=== PATIENT | female | born 1960 | race Caucasian/White ===

== ENCOUNTER → 2020-10-05 10:22 | Outpatient (CLI) | payer MEDICARE, SELFPAY ==
[2020-10-05 15:44] LABS: Basophils % 0.5 % (0.1-2.0); Eosinophils # 0.2 K/mm3 (0.0-0.4); Eosinophils % 2.9 % (0.1-12.0); Hematocrit 36.3 % (37.0-47.0); Lymphocytes # 1.3 K/mm3 (0.7-4.5); Lymphocytes % 23.1 % (10-50); Mean Corpuscular Hemoglobin 29.2 pg (27.0-31.2); Mean Corpuscular Volume 88.4 fl (81-99); Mean Platelet Volume 8.3 fl (7.4-10.4); Monocytes # 0.3 K/mm3 (0.1-1.0); Monocytes % 5.4 % (1.7-9.3); Neutrophils # 3.8 K/mm3 (1.8-7.8); Neutrophils % 68.1 % (37.0-80.0); Platelet Count 225 K/mm3 (142-424); Red Blood Count 4.11 M/mm3 (4.20-5.40); Red Cell Distribution Width 13.3 % (11.5-17.5); White Blood Count 5.6 K/mm3 (4.8-10.8)
[2020-10-05 15:58] LABS: Chloride 102 mmol/L (98-107)
[2020-10-05 15:59] LABS: Potassium 3.2 mmoL/L (3.5-5.1); Sodium 136 mmol/L (136-145)
[2020-10-05 16:02] LABS: Alanine Aminotransferase 17 U/L (12-78); Albumin Level 3.7 g/dl (3.5-5.0); Albumin/Globulin Ratio 1.5 (1.1-1.8); Alkaline Phosphatase 55 U/L (38-126); Anion Gap 8.2 mEq/L (5-15); Aspartate Amino Transferase 42 U/L (14-36); Bilirubin,Total 0.9 mg/dl (0.2-1.3); Blood Urea Nitrogen 19 mg/dl (7-17); Calcium 8.8 mg/dl (8.4-10.2); Carbon Dioxide 29 mmol/L (22.0-30.0); Estimated Glomerular Filt Rate 64 ml/min (>60); GFR (African American) 77 ML/MIN (>60); Globulin 2.5 g/dL (1.3-3.2); Glucose 71 mg/dl (74-100); Total Protein,Serum 6.2 g/dl (6.3-8.2)
== END ==
PROVIDERS: Visit Provider Internal Medicine Adolescent Medicine
DX: I10 Essential (primary) hypertension (principal)
CPT/HCPCS: 36415; 80053; 85025

== ENCOUNTER → 2020-10-20 07:39 | Outpatient (CLI) | payer MEDICARE, SELFPAY ==
[2020-10-20 14:24] LABS: Chloride 102 mmol/L (98-107); Sodium 138 mmol/L (136-145)
[2020-10-20 14:26] LABS: Blood Urea Nitrogen 23 mg/dl (7-17); Estimated Glomerular Filt Rate 50 ml/min (>60); GFR (African American) 61 ML/MIN (>60)
[2020-10-20 14:27] LABS: Alanine Aminotransferase 20 U/L (12-78); Albumin Level 3.8 g/dl (3.5-5.0); Albumin/Globulin Ratio 1.4 (1.1-1.8); Alkaline Phosphatase 59 U/L (38-126); Aspartate Amino Transferase 40 U/L (14-36); Bilirubin,Total 1.1 mg/dl (0.2-1.3); Calcium 9.1 mg/dl (8.4-10.2); Carbon Dioxide 27 mmol/L (22.0-30.0); Globulin 2.7 g/dL (1.3-3.2); Glucose 87 mg/dl (74-100); Total Protein,Serum 6.5 g/dl (6.3-8.2)
[2020-10-20 14:36] LABS: Basophils % 0.5 % (0.1-2.0); Eosinophils # 0.1 K/mm3 (0.0-0.4); Eosinophils % 1.2 % (0.1-12.0); Hematocrit 36.6 % (37.0-47.0); Hemoglobin 12.3 g/dL (12.2-16.2); Lymphocytes # 1.5 K/mm3 (0.7-4.5); Lymphocytes % 20.8 % (10-50); Mean Corpuscular HGB Conc 33.6 g/dL (31.8-35.4); Mean Corpuscular Hemoglobin 29.1 pg (27.0-31.2); Mean Corpuscular Volume 86.8 fl (81-99); Mean Platelet Volume 8.7 fl (7.4-10.4); Monocytes # 0.3 K/mm3 (0.1-1.0); Monocytes % 4.5 % (1.7-9.3); Neutrophils # 5.3 K/mm3 (1.8-7.8); Platelet Count 250 K/mm3 (142-424); Red Blood Count 4.22 M/mm3 (4.20-5.40); Red Cell Distribution Width 13.4 % (11.5-17.5); White Blood Count 7.2 K/mm3 (4.8-10.8)
== END ==
PROVIDERS: Visit Provider Internal Medicine Adolescent Medicine
DX: I10 Essential (primary) hypertension (principal)
CPT/HCPCS: 36415; 80053; 85025

== ENCOUNTER → 2020-10-21 13:55 | Outpatient (CLI) | payer MEDICARE, SELFPAY ==
[2020-10-21 14:01] LABS: Microscopic, Urine URINE MICROSCOPIC (MICROSCOPIC)
[2020-10-21 14:13] LABS: Appearance,Urine SL CLOUDY (Clear); Bilirubin,Urine Negative (Negative); Blood, Urine TRACE-I (Negative); Color,Urine DK YELLOW (Yellow); Glucose,Urine (UA) Negative (Negative); Ketones,Urine Negative (Negative); Leukocyte Esterase,Urine Negative (Negative); Nitrate,Urine Negative (Negative); Protein,Urine TRACE (Negative); Specific Gravity, Urine >= 1.030 (1.005-1.030)
== END ==
PROVIDERS: Visit Provider Internal Medicine Adolescent Medicine
DX: R82.90 Unspecified abnormal findings in urine (principal)
CPT/HCPCS: 81001

== ENCOUNTER → 2020-11-03 08:05 | Outpatient (CLI) | payer MEDICARE, SELFPAY ==
[2020-11-03 08:12] LABS: Microscopic, Urine URINE MICROSCOPIC (MICROSCOPIC)
[2020-11-03 14:11] LABS: Appearance,Urine CLEAR (Clear); Bilirubin,Urine Negative (Negative); Blood, Urine TRACE-I (Negative); Color,Urine YELLOW (Yellow); Glucose,Urine (UA) Negative (Negative); Ketones,Urine Negative (Negative); Leukocyte Esterase,Urine Negative (Negative); Nitrate,Urine Negative (Negative); Protein,Urine Negative (Negative); Urobilinogen,Urine 0.2 EU/dl (0.2)
[2020-11-03 14:16] LABS: Chloride 105 mmol/L (98-107); Sodium 139 mmol/L (136-145)
[2020-11-03 14:18] LABS: Alanine Aminotransferase 25 U/L (12-78); Alkaline Phosphatase 75 U/L (38-126); Aspartate Amino Transferase 46 U/L (14-36); Bilirubin,Total 0.8 mg/dl (0.2-1.3); Blood Urea Nitrogen 24 mg/dl (7-17); Carbon Dioxide 28 mmol/L (22.0-30.0); Estimated Glomerular Filt Rate 56 ml/min (>60); GFR (African American) 68 ML/MIN (>60)
[2020-11-03 14:19] LABS: Albumin Level 3.4 g/dl (3.5-5.0); Albumin/Globulin Ratio 1.3 (1.1-1.8); Globulin 2.6 g/dL (1.3-3.2); Glucose 82 mg/dl (74-100)
[2020-11-03 14:31] LABS: RBC,Urine Occasional #/hpf (0-3); Squamous Epithelial Cell,Urine Occasional #/hpf (0-5)
[2020-11-03 14:32] LABS: Basophils % 0.8 % (0.1-2.0); Eosinophils # 0.3 K/mm3 (0.0-0.4); Eosinophils % 4.5 % (0.1-12.0); Hematocrit 38.5 % (37.0-47.0); Hemoglobin 13.1 g/dL (12.2-16.2); Lymphocytes # 1.6 K/mm3 (0.7-4.5); Lymphocytes % 27.8 % (10-50); Mean Corpuscular HGB Conc 33.9 g/dL (31.8-35.4); Mean Corpuscular Hemoglobin 29.5 pg (27.0-31.2); Mean Platelet Volume 8.6 fl (7.4-10.4); Monocytes # 0.3 K/mm3 (0.1-1.0); Monocytes % 4.8 % (1.7-9.3); Neutrophils # 3.6 K/mm3 (1.8-7.8); Neutrophils % 62.1 % (37.0-80.0); Platelet Count 297 K/mm3 (142-424); Red Blood Count 4.43 M/mm3 (4.20-5.40); Red Cell Distribution Width 13.4 % (11.5-17.5); White Blood Count 5.8 K/mm3 (4.8-10.8)
== END ==
PROVIDERS: Visit Provider Nurse Practitioner Family
DX: N39.0 Urinary tract infection, site not specified (principal)
CPT/HCPCS: 36415; 80053; 81001; 85025; 87086

== ENCOUNTER → 2020-11-06 06:58 | Outpatient (CLI) | payer MEDICARE, SELFPAY ==
--- NOTE | 2020-11-06 07:07 | CT_ITS ---
PROCEDURE: CT HEAD/BRAIN WO CON CLINICAL INDICATION: DEMENTIA COMPARISON: No exams were available for comparison TECHNIQUE: Axial images obtained. All CT scans at the facility use one or more dose reduction, viz: automated exposure control, ma/kV adjustment per patient size (including targeted exams where dose is matched to indication, i.e. head), or iterative reconstruction technique. FINDINGS: No midline shift, mass effect, intracranial hemorrhage, hydrocephalus, or extra-axial fluid collection is evident. There is moderate generalized atrophy. The calvarium has an unremarkable appearance. No mastoid effusion. No sinus air-fluid level. IMPRESSION: Atrophy, no acute intracranial findings. Dictated by: Grant Reid MD 11/06/2020 19:24 Grant Reid MD in [facility] 11/06/2020 19:24
== END ==
PROVIDERS: PCP Internal Medicine Adolescent Medicine; Visit Provider Internal Medicine Adolescent Medicine
DX: F03.91 Unspecified dementia, unspecified severity, with behavioral disturbance (principal)
CPT/HCPCS: 70450

== ENCOUNTER 2020-11-09 16:04 | Observation (INO) | payer MEDICARE, SELFPAY ==
[2020-11-09] VITALS (9 sets, daily range): BP systolic 141–178; BP diastolic 83–101; PULSE 89–124; RESP 17–30; TEMP 37.5–39.1; O2SAT 94–97; BMI 25.7; BMI 18.3
--- NOTE | 2020-11-09 16:06 | ECG_ITS ---
APPROVED REPORT Exam: Resting ECG HR:126 bpm ECG Measurements Heart Rate 126 AXES NM 114 P 104 QRSd 70 QRS 108 QT 306 T 79 QTc 443 Conclusion Sinus tachycardia Rightward axis Septal infarct, age undetermined Abnormal ECG Electronically signed by : Lalo Hanson, 11/09/2020 18:12:40
--- NOTE | 2020-11-09 16:25 | XR_ITS ---
PROCEDURE: XR CHEST PORTABLE CLINICAL HISTORY: cough COMPARISON: No exams were available for comparison FINDINGS: There is collapse/consolidation of the left lung with shift of mediastinum and trachea to the left. Small to moderate left effusion is noted. Right lung is clear. Degenerative changes of the visualized thoracic spine are noted IMPRESSION: Collapse/consolidation of the left lung with small to moderate left effusion. Close follow-up is recommended. Dictated by: Nury Shepard 11/09/2020 16:50 Nury Shepard in [facility] 11/09/2020 16:50
[2020-11-09 16:36] LABS: Adenovirus,PCR Not Detected (NotDetected); Bordetella Pertussis Not Detected (NotDetected); Chlamydophila Pneumoniae, PCR Not Detected (NotDetected); Coronavirus 19, PCR Not Detected (NotDetected); Coronavirus 229E Not Detected (NotDetected); Coronavirus NL63 Not Detected (NotDetected); Coronavirus OC43 Not Detected (NotDetected); Coronovirus HKU1,PCR Not Detected (NotDetected); Human Metapneumovirus Not Detected (NotDetected); Influenza A, PCR Not Detected (NotDetected); Influenza AH1, 2009 Not Detected (NotDetected); Influenza AH1, PCR Not Detected (NotDetected); Influenza AH3,PCR Not Detected (NotDetected); Influenza B, PCR Not Detected (NotDetected); Mycoplasma Pneumoniae, PCR Not Detected (NotDetected); Parainfluenza 1, PCR Not Detected (NotDetected); Parainfluenza 2, PCR Not Detected (NotDetected); Parainfluenza 3, PCR Not Detected (NotDetected); Parainfluenza 4, PCR Not Detected (NotDetected); Respiratory Syncytial Virus Not Detected (NotDetected); Rhinovirus/Enterovirus Not Detected (NotDetected)
[2020-11-09 16:40] LABS: Microscopic, Urine URINE MICROSCOPIC (MICROSCOPIC)
[2020-11-09 16:42] LABS: Appearance,Urine CLEAR (Clear); Blood, Urine 2+ (Negative); Color,Urine YELLOW (Yellow); Glucose,Urine (UA) Negative (Negative); Ketones,Urine 1+ (Negative); Leukocyte Esterase,Urine TRACE (Negative); Nitrate,Urine Negative (Negative); PH,Urine 6.5 (5.0-8.5); Protein,Urine 2+ (Negative); Specific Gravity, Urine 1.025 (1.005-1.030); Urobilinogen,Urine 0.2 EU/dl (0.2)
[2020-11-09 16:45] LABS: Basophils % 0.4 % (0.1-2.0); Bilirubin,Urine Negative (Negative); Chloride 112 mmol/L (98-107); Eosinophils # 0.1 K/mm3 (0.0-0.4); Eosinophils % 0.4 % (0.1-12.0); Hematocrit 46.1 % (37.0-47.0); Hemoglobin 15.2 g/dL (12.2-16.2); Lymphocytes % 8.2 % (10-50); Mean Corpuscular HGB Conc 33.1 g/dL (31.8-35.4); Mean Corpuscular Hemoglobin 29.2 pg (27.0-31.2); Mean Corpuscular Volume 88.4 fl (81-99); Mean Platelet Volume 8.3 fl (7.4-10.4); Monocytes # 0.5 K/mm3 (0.1-1.0); Monocytes % 4.2 % (1.7-9.3); Neutrophils % 86.8 % (37.0-80.0); Platelet Count 512 K/mm3 (142-424); Red Blood Count 5.22 M/mm3 (4.20-5.40); Red Cell Distribution Width 13.6 % (11.5-17.5); Sodium 147 mmol/L (136-145); White Blood Count 12.7 K/mm3 (4.8-10.8)
[2020-11-09 16:48] LABS: Alanine Aminotransferase 27 U/L (12-78); Albumin Level 4.4 g/dl (3.5-5.0); Albumin/Globulin Ratio 1.2 (1.1-1.8); Alkaline Phosphatase 89 U/L (38-126); Anion Gap 13.5 mEq/L (5-15); Aspartate Amino Transferase 39 U/L (14-36); Bilirubin,Total 0.8 mg/dl (0.2-1.3); Blood Urea Nitrogen 51 mg/dl (7-17); Calcium 10.4 mg/dl (8.4-10.2); Carbon Dioxide 26 mmol/L (22.0-30.0); Creatinine Clearance Estimated 42 mL/min (50-200); Estimated Glomerular Filt Rate 35 ml/min (>60); GFR (African American) 43 ML/MIN (>60); Globulin 3.7 g/dL (1.3-3.2); Glucose 153 mg/dl (74-100); Lipase 102 U/L (23-300); Potassium 4.5 mmoL/L (3.5-5.1); Total Protein,Serum 8.1 g/dl (6.3-8.2)
[2020-11-09 16:49] LABS: Lactic Acid 1.6 mmol/L (0.7-2.1)
[2020-11-09 16:50] LABS: Bacteria,Urine 4+ /lpf
[2020-11-09 16:52] LABS: MANUAL DIFFERENTIAL MANUAL DIFFERENTIAL (MANUAL DIFF)
--- NOTE | 2020-11-09 16:59 | HMH.EDFEV ---
ED Disposition Clinical Impression: Sepsis Qualifiers: Sepsis type: sepsis due to unspecified organism Sepsis acute organ dysfunction status: with acute organ dysfunction Severe sepsis acute organ dysfunction type: unspecified Severe sepsis shock status: without septic shock Qualified Code(s): A41.9 - Sepsis, unspecified organism; R65.20 - Severe sepsis without septic shock Left lower lobe pneumonia Qualifiers: Pneumonia type: due to unspecified organism Qualified Code(s): J18.9 - Pneumonia, unspecified organism UTI (urinary tract infection) Qualifiers: Urinary tract infection type: acute cystitis Hematuria presence: with hematuria Qualified Code(s): N30.01 - Acute cystitis with hematuria Disposition: Admitted As Inpatient Condition on Discharge: Serious - Critical Care Critical Care Time: No Attestation: On 11/09/20, the high probability of a clinically significant, sudden or life threatening deterioration of the following system(s) required my full and direct attention, intervention and personal management. The time I documented below is in addition to time spent performing reported procedures but includes the following listed in this critical care notation. Medical Decision Making - Medical Records Medical records reviewed: Yes: I reviewed the patient's medical records. - [place] Inquiry Pt receiving controlled substance: No Vital Signs: 11/09/20 16:00 11/09/20 16:30 11/09/20 17:00 Temperature 102.3 F H Temperature Source Rectal Pulse Rate 124 H 119 H Pulse Rate [Left Radial] 121 H Respiratory Rate 24 24 26 H Blood Pressure 170/94 H 154/101 H Blood Pressure [Right Arm] 170/94 H Blood Pressure Mean 120 124 Blood Pressure Mean [Right Arm] 119 Blood Pressure Source [Right Arm] Automatic Cuff Blood Pressure Position [Right Arm] Sitting 02 Sat by Pulse Oximetry 95 94 L Oxygen Delivery Method Room Air 11/09/20 17:30 Temperature 100.7 F H Temperature Source Pulse Rate 109 H Pulse Rate [Left Radial] Respiratory Rate 17 Blood Pressure 176/94 H Blood Pressure [Right Arm] Blood Pressure Mean 119 Blood Pressure Mean [Right Arm] Blood Pressure Source [Right Arm] Blood Pressure Position [Right Arm] 02 Sat by Pulse Oximetry 96 Oxygen Delivery Method - Lab Data Lab Results 11/09/20 16:23: Urine Color Yellow, Urine Appearance Clear, Urine pH 6.5, Ur Specific [place] 1.025, Urine Protein 2+, Urine Glucose (UA) Negative, Urine Ketones 1+, Urine Blood 2+, Urine Nitrate Negative, Urine Bilirubin Negative, Urine Urobilinogen 0.2, Ur Leukocyte Esterase Trace, Urine RBC 3-5, Urine WBC 5-10, Ur Squamous Epith Cells 3-5, Urine Bacteria 4+ 11/09/20 16:23: WBC 12.7 H, RBC 5.22, Hgb 15.2, Hct 46.1, MCV 88.4, MCH 29.2, MCHC 33.1, RDW 13.6, Plt Count 512 H, MPV 8.3, Neut % (Auto) 86.8 H, Lymph % (Auto) 8.2 L, [place] % (Auto) 4.2, Eos % (Auto) 0.4, Baso % (Auto) 0.4, Neut # (Auto) 11.0 H, Lymph # (Auto) 1.0, [place] # (Auto) 0.5, Eos # (Auto) 0.1, Baso # (Auto) 0.0, Total Counted 100, Neutrophils % (Manual) 81 H, Lymphocytes % (Manual) 11, Monocytes % (Manual) 8, Platelet Estimate Slight increase, RBC Morphology Normal 11/09/20 16:23: Sodium 147 H, Potassium 4.5, Chloride 112 H, Carbon Dioxide 26, Anion Gap 13.5, BUN 51 H, Creatinine 1.50 H, Estimated Creat Clear 42, Estimated GFR 35 L, Est GFR ( Amer) 43 L, Glucose 153 H, Calcium 10.4 H, Total Bilirubin 0.8, AST 39 H, ALT 27, Alkaline Phosphatase 89, Total Protein 8.1 D, Albumin 4.4, Globulin 3.7 H, Albumin/Globulin Ratio 1.2, Lipase 102 11/09/20 16:23: Lactate 1.6 11/09/20 16:25: Chlamy pneumoniae PCR Not detected, Adenovirus (PCR) Not detected, B. pertussis DNA (PCR) Not detected, Coronavirus OC43 (PCR) Not detected, Coronavirus HKU1 (PCR) Not detected, Coronavirus 229E (PCR) Not detected, SARS-CoV-2 (PCR) Not detected, Coronavirus NL63 (PCR) Not detected, Human Metapneumovir PCR Not detected, Influenza A (H1) PCR Not detected, Influ A (H1N1/09) PCR Not de
[2020-11-09 17:02] LABS: Lymphocytes % 11 % (10-50); Monocytes % 8 % (2-9); Neutrophils % 81 % (42-76); Platelet Estimate Slight Increase; RBC Morphology Normal; Total Cells Counted 100
--- NOTE | 2020-11-09 18:30 | PC.NURSE ---
Dr. Nelson joaquin.
--- NOTE | 2020-11-09 19:32 | PC.NURSE ---
Talked to Gurjit in pharmacy who states to do a one time dose of 1500mg and then 1000mg q12hrs after
--- NOTE | 2020-11-09 20:02 | PC.NURSE ---
patient up to floor via stretcher.
[2020-11-10] VITALS (9 sets, daily range): BP systolic 127–174; BP diastolic 74–96; PULSE 60–92; RESP 12–17; TEMP 36.6–38.3; O2SAT 96–99; BMI 18.3
--- NOTE | 2020-11-10 05:34 | PC.NURSE ---
Patient admitted to floor with UTI and PNA. Patient Lactic 1.6, WBC's 12.7, Patient has been administered 1 bolus on this floor, 1 dose Vanc and 1 dose Zosyn. Patient is oriented to 0, she has not spoken and is lethargic, VSS. Will continue to monitor for any acute changes.
--- NOTE | 2020-11-10 06:25 | PC.WOUNDNOTE ---
Unstageable Sacral/coccygeal Pressure Ulcer measurement 3 cm long, 1 cm wide
[2020-11-10 06:42] LABS: Monocytes # 0.7 K/mm3 (0.1-1.0)
--- NOTE | 2020-11-10 06:46 | HMH.HP ---
*Admission Date: 11/09/20 *Chief complaint: sepsis, AMS *History of present illness: 59-year-old female with a history of dementia, hypertension and lung cancer status post pneumonectomy in remission, recently admitted to our service at at [facility]. She was brought to the ER Due to worsening altered mental status, inability to tolerate p.o. medications, and lack of response to sternal rub. On work-up in the ER she was found to have criteria for sepsis with tachycardia, fever, endorgan damage (KELI) and urinary tract infection. Admitted for IV antibiotics, fluid resuscitation, and further management. Review of her outpatient records show that she has an extensive history of progressive dementia with psychiatric symptoms. Recent admissions in the past several months to [facility], and most recently sent [facility]. Significant adjustments to her medications were made at that time. She has been less responsive ever since returning. Of note, had a recent episode of E. coli UTI with hallucinations requiring admission to earlier this year. [facility] History I have reviewed the patient's past medical history: Yes (from chart/outpt record) Medical History: Reports:: Cancer, Chronic Obstructive Pulmonary Disease (COPD), Dementia, Hypertension Denies:: Atrial Fibrillation, Congestive Heart Failure, Diabetes Mellitus Type 2 *Have you ever received a pneumonia vaccine?: No (Unknown) *Have you received a flu vaccine this season?: No (Unknown) Other Surgeries: Yes: Cancer Surgery - *Social History Smoking Status: Former smoker Tobacco Type: cigarettes Alcohol Intake: never *Occupational Status:: disabled *Travel in the last 8 weeks: None Family Hx:: Unable to obtain Review of Systems - Review of Systems Review of systems:: unable to obtain - *Neurologic Denies headache(s) Meds Home Medications Medication Instructions Recorded Confirmed Type Acetaminophen [Tylenol Extra 1,000 mg PO BID 11/09/20 11/09/20 History Strength] Dextromethorphan HBr/Quinidine 1 each PO BID 11/09/20 11/09/20 History [Nuedexta 20-10 mg Capsule] Mirtazapine [Remeron 15mg tablet] 15 mg PO DAILY 11/09/20 11/10/20 History OLANZapine [Zyprexa] 5 mg PO BID 11/09/20 11/10/20 History PARoxetine HCL [Paxil] 30 mg PO DAILY 11/09/20 11/10/20 History diazePAM [diazePAM 5mg Tablet] 5 mg PO TID 11/09/20 11/10/20 History Allergies Allergy/AdvReac Type Severity Reaction Status Date / Time No Known Allergies Allergy Verified 11/09/20 17:01 Exam Vital signs and Labs for Last 24 Hours: Temp Pulse Resp BP Pulse Ox 99.2 F 70 17 133/74 97 11/10/20 03:59 11/10/20 03:59 11/10/20 03:59 11/10/20 03:59 11/10/20 03:59 Laboratory Results - last 24 hr 11/09/20 16:23: Urine Color Yellow, Urine Appearance Clear, Urine pH 6.5, Ur Specific [place] 1.025, Urine Protein 2+, Urine Glucose (UA) Negative, Urine Ketones 1+, Urine Blood 2+, Urine Nitrate Negative, Urine Bilirubin Negative, Urine Urobilinogen 0.2, Ur Leukocyte Esterase Trace, Urine RBC 3-5, Urine WBC 5-10, Ur Squamous Epith Cells 3-5, Urine Bacteria 4+ 11/09/20 16:23: WBC 12.7 H, RBC 5.22, Hgb 15.2, Hct 46.1, MCV 88.4, MCH 29.2, MCHC 33.1, RDW 13.6, Plt Count 512 H, MPV 8.3, Neut % (Auto) 86.8 H, Lymph % (Auto) 8.2 L, [place] % (Auto) 4.2, Eos % (Auto) 0.4, Baso % (Auto) 0.4, Neut # (Auto) 11.0 H, Lymph # (Auto) 1.0, [place] # (Auto) 0.5, Eos # (Auto) 0.1, Baso # (Auto) 0.0, Total Counted 100, Neutrophils % (Manual) 81 H, Lymphocytes % (Manual) 11, Monocytes % (Manual) 8, Platelet Estimate Slight increase, RBC Morphology Normal 11/09/20 16:23: Sodium 147 H, Potassium 4.5, Chloride 112 H, Carbon Dioxide 26, Anion Gap 13.5, BUN 51 H, Creatinine 1.50 H, Estimated Creat Clear 42, Estimated GFR 35 L, Est GFR ( Amer) 43 L, Glucose 153 H, Calcium 10.4 H, Total Bilirubin 0.8, AST 39 H, ALT 27, Alkaline Phosphatase 89, Total Protein 8.1 D, Albumin 4.4, Globu
[2020-11-10 06:56] LABS: Alanine Aminotransferase 18 U/L (12-78); Albumin Level 3.2 g/dl (3.5-5.0); Albumin/Globulin Ratio 1.1 (1.1-1.8); Alkaline Phosphatase 58 U/L (38-126); Anion Gap 7.7 mEq/L (5-15); Aspartate Amino Transferase 32 U/L (14-36); Bilirubin,Total 0.6 mg/dl (0.2-1.3); Blood Urea Nitrogen 44 mg/dl (7-17); Carbon Dioxide 25 mmol/L (22.0-30.0); Chloride 122 mmol/L (98-107); Creatinine Clearance Estimated 41 mL/min (50-200); Estimated Glomerular Filt Rate 50 ml/min (>60); GFR (African American) 61 ML/MIN (>60); Glucose 109 mg/dl (74-100); Potassium 3.7 mmoL/L (3.5-5.1); Total Protein,Serum 6.2 g/dl (6.3-8.2)
[2020-11-10 06:58] LABS: Basophils # 0.1 K/mm3 (0-0.2); Basophils % 0.3 % (0.1-2.0); Hematocrit 38.2 % (37.0-47.0); Lymphocytes # 1.5 K/mm3 (0.7-4.5); Lymphocytes % 11.2 % (10-50); Mean Corpuscular HGB Conc 32.6 g/dL (31.8-35.4); Mean Corpuscular Hemoglobin 28.6 pg (27.0-31.2); Mean Corpuscular Volume 87.9 fl (81-99); Mean Platelet Volume 8.4 fl (7.4-10.4); Monocytes % 5.4 % (1.7-9.3); Neutrophils # 10.8 K/mm3 (1.8-7.8); Neutrophils % 83.1 % (37.0-80.0); Platelet Count 366 K/mm3 (142-424); Red Blood Count 4.35 M/mm3 (4.20-5.40); Red Cell Distribution Width 13.7 % (11.5-17.5)
[2020-11-10 07:03] LABS: Hemoglobin 12.5 g/dL (12.2-16.2)
--- NOTE | 2020-11-10 07:28 | P.CONPHA_ITS ---
[facility] Pharmacy VTE Monitoring - Patient Demographics Admission date: 11/09/20 Report Date: 11/10/20 Time: 07:28 Allergies/Adverse Reactions: Patient Allergies No Known Allergies Allergy (Verified 11/09/20 17:01) Height: 1.63 m Weight: 48.761 kg Patient Problems: Current Active Problems Sepsis (Acute) Left lower lobe pneumonia (Acute) UTI (urinary tract infection) (Acute) Severe sepsis (Acute) Hypernatremia (Acute) KELI (acute kidney injury) (Acute) Hx of cancer of lung (Chronic) History of pneumonectomy (Chronic) Dementia (Chronic) - VTE Risk Labs: VTE Related Lab Results Hgb 12.5 g/dL (12.2-16.2) D 11/10/20 06:02 Hct 38.2 % (37.0-47.0) 11/10/20 06:02 Plt Count 366 K/mm3 (142-424) D 11/10/20 06:02 BUN 51 mg/dl (7-17) H 11/09/20 16:23 Creatinine 1.50 mg/dl (0.52-1.04) H 11/09/20 16:23 Estimated Creat Clear 42 mL/min (50-200) 11/09/20 16:23 Was VTE Risk Assessment Performed: Yes VTE Score: 6 VTE Risk Level: Moderate Risk - Prophylaxis VTE Prophylaxis Ordered?: Yes Types of VTE Prophylaxis: TEDS Knee High Location of Applied Device: Bilateral Lower Extremeties
[2020-11-10 07:44] LABS: Sodium 151 mmol/L (136-145)
[2020-11-10 07:45] LABS: Calcium 8.9 mg/dl (8.4-10.2)
--- NOTE | 2020-11-10 09:02 | HMH.PHACONS ---
- Pharmacy Consult Date: 11/10/20 Time: 09:02 Referring provider: DR. PUCKETT Reason for Consult:: VANCOMYCIN DOSING Allergies and ADEs:: Allergies Allergy/AdvReac Type Severity Reaction Status Date / Time No Known Allergies Allergy Verified 11/09/20 17:01 Home Medications:: Home Medications Medication Instructions Recorded Confirmed Type Acetaminophen [Tylenol Extra 1,000 mg PO BID 11/09/20 11/09/20 History Strength] Dextromethorphan HBr/Quinidine 1 each PO BID 11/09/20 11/09/20 History [Nuedexta 20-10 mg Capsule] Mirtazapine [Remeron 15mg tablet] 15 mg PO DAILY 11/09/20 11/10/20 History OLANZapine [Zyprexa] 5 mg PO BID 11/09/20 11/10/20 History PARoxetine HCL [Paxil] 30 mg PO DAILY 11/09/20 11/10/20 History diazePAM [diazePAM 5mg Tablet] 5 mg PO TID 11/09/20 11/10/20 History Height: 1.63 m Weight: 48.761 kg Laboratory Results:: Laboratory Results - last 24 hr 11/09/20 16:23: Urine Color Yellow, Urine Appearance Clear, Urine pH 6.5, Ur Specific [place] 1.025, Urine Protein 2+, Urine Glucose (UA) Negative, Urine Ketones 1+, Urine Blood 2+, Urine Nitrate Negative, Urine Bilirubin Negative, Urine Urobilinogen 0.2, Ur Leukocyte Esterase Trace, Urine RBC 3-5, Urine WBC 5-10, Ur Squamous Epith Cells 3-5, Urine Bacteria 4+ 11/09/20 16:23: WBC 12.7 H, RBC 5.22, Hgb 15.2, Hct 46.1, MCV 88.4, MCH 29.2, MCHC 33.1, RDW 13.6, Plt Count 512 H, MPV 8.3, Neut % (Auto) 86.8 H, Lymph % (Auto) 8.2 L, [place] % (Auto) 4.2, Eos % (Auto) 0.4, Baso % (Auto) 0.4, Neut # (Auto) 11.0 H, Lymph # (Auto) 1.0, [place] # (Auto) 0.5, Eos # (Auto) 0.1, Baso # (Auto) 0.0, Total Counted 100, Neutrophils % (Manual) 81 H, Lymphocytes % (Manual) 11, Monocytes % (Manual) 8, Platelet Estimate Slight increase, RBC Morphology Normal 11/09/20 16:23: Sodium 147 H, Potassium 4.5, Chloride 112 H, Carbon Dioxide 26, Anion Gap 13.5, BUN 51 H, Creatinine 1.50 H, Estimated Creat Clear 42, Estimated GFR 35 L, Est GFR ( Amer) 43 L, Glucose 153 H, Calcium 10.4 H, Total Bilirubin 0.8, AST 39 H, ALT 27, Alkaline Phosphatase 89, Total Protein 8.1 D, Albumin 4.4, Globulin 3.7 H, Albumin/Globulin Ratio 1.2, Lipase 102 11/09/20 16:23: Lactate 1.6 11/09/20 16:25: Chlamy pneumoniae PCR Not detected, Adenovirus (PCR) Not detected, B. pertussis DNA (PCR) Not detected, Coronavirus OC43 (PCR) Not detected, Coronavirus HKU1 (PCR) Not detected, Coronavirus 229E (PCR) Not detected, SARS-CoV-2 (PCR) Not detected, Coronavirus NL63 (PCR) Not detected, Human Metapneumovir PCR Not detected, Influenza A (H1) PCR Not detected, Influ A (H1N1/09) PCR Not detected, Influenza A (H3) PCR Not detected, Influenza Type A (PCR) Not detected, Influenza Type B (PCR) Not detected, M. pneumoniae (PCR) Not detected, Parainfluenza 1 (PCR) Not detected, Parainfluenza 2 (PCR) Not detected, Parainfluenza 3 (PCR) Not detected, Parainfluenza 4 (PCR) Not detected, RSV (PCR) Not detected, Entero/Rhino (PCR) Not detected 11/10/20 06:02: WBC 13.0 H, RBC 4.35, Hgb 12.5 D, Hct 38.2, MCV 87.9, MCH 28.6, MCHC 32.6, RDW 13.7, Plt Count 366 D, MPV 8.4, Neut % (Auto) 83.1 H, Lymph % (Auto) 11.2, [place] % (Auto) 5.4, Eos % (Auto) 0.0 L, Baso % (Auto) 0.3, Neut # (Auto) 10.8 H, Lymph # (Auto) 1.5, [place] # (Auto) 0.7, Eos # (Auto) 0.0, Baso # (Auto) 0.1 11/10/20 06:02: Sodium 151 H*, Potassium 3.7, Chloride 122 H, Carbon Dioxide 25, Anion Gap 7.7, BUN 44 H, Creatinine 1.10 H D, Estimated Creat Clear 41, Estimated GFR 50 L, Est GFR ( Amer) 61 D, Glucose 109 H D, Calcium 8.9 D, Total Bilirubin 0.6, AST 32, ALT 18 D, Alkaline Phosphatase 58, Total Protein 6.2 L, Albumin 3.2 L D, Globulin 3.0, Albumin/Globulin Ratio 1.1 Medical History: Reports:: Cancer, Chronic Obstructive Pulmonary Disease (COPD), Dementia, Hypertension Denies:: Atrial Fibrillation, Congestive Heart Failure, Diabetes Mellitus Type 2 Assessment and Plan (1) Severe sepsis Status: Acute Category: Medical Code(s): A41.9 - Sepsis, unspecified organism; R65.20 -
--- NOTE | 2020-11-10 11:09 | HMH.PHAINT ---
MEDICATION RECONCILIATION COMPLETED ON PATIENT USING MAR FROM [facility]. -ALOK [place], AVERYD
--- NOTE | 2020-11-10 11:32 | SW/DCPLANNER ---
PATIENT PRESENTED INTO THE HOSPITAL WITH A DIAGNOSIS OF UTI AND PNEUMONIA: SHE IS A RESIDENT OF [place] IN [place] AN IS ON A BEDHOLD..I HAVE SENT UPDATES TO [facility] FOR A POSSIBLE DISCHARGE SOON...
--- NOTE | 2020-11-10 14:03 | HMH.PTWOUND ---
Rehab Inpt Wound Evaluation Rehab IP Wound Evaluation Start: 11/10/20 11:52 Freq: ONCE Status: Active Protocol: Document 11/10/20 13:49 PWJASON (Rec: 11/10/20 14:03 PWJASON [id number]) Rehab PT Wound Assessment Patient Status Premedicated Prior to Dressing Change No Subjective Subjective Pt is non-verbal - no response to questions - pt did not respond when PT and nursing staff rolled pt and moved pt in bed Wound Sacrum Wound Type Pressure Ulcer Is This a Chronic Wound Yes Wound Staging Unstageable Query Text:Stage I - Unbroken, red skin, no blanching. Stage II - Skin broken, superficial skin loss involving epidermis alone or also dermis. Partial loss of skin layers. Stage III - Pressure area involves epidermis, dermis and subcutaneous tissue, full thickness skin loss. Stage IV - Pressure area involves epidermis, subcutaneous tissue, bone and other supportive tissue. Full thickness skin loss with extensive destruction of underlying tissue and structures. Wound Length (cm) 4.0 Wound Width (cm) 2.5 Wound Bed Appearance Eschar Percentage of Eschar (Black) (%) 100 Wound Margins Description Macerated Surrounding Tissue Appearance Bright Red,Dark Red Surrounding Tissue Temperature Hot Wound Drainage Description Purulent Drainage Amount Small Drainage Odor Foul Odor Dressing Status Dry & Intact,Changed Primary Dressing betadyne gauze Wound Secondary Dressing Type Adhesive Dressing Comment optifoam sacral Wound Debridement Amount of Tissue None Removed Plan/Recommendation Comment Pt has necrotic escar wound on sacrum - escar is paper thin and right above coccy, debridement of tissue would allow posibility of osteonecrosis - pt needs to maintain pressure relief w/ regular turning from nsg staff and regular changing of dressing due to drainage - Pt' s nutrition seems to be a significant issue and poor nutrition will be detrimental to healing of wound - without
--- NOTE | 2020-11-10 15:32 | PC.NURSE ---
PATIENT IS NON VERBAL, WILL NOT FOLLOW COMMANDS. PATIENT WILL MOAN. THIS RN ALONG WITH KHUSHI HUITRON, SPOKE WITH SPOUSE. PER SPOUSE, PATIENT IS DNR. NO OTHER CONCERNS AT THIS TIME.
[2020-11-10 20:49] LABS: Chloride 122 mmol/L (98-107)
[2020-11-10 20:50] LABS: Potassium 3.7 mmoL/L (3.5-5.1)
[2020-11-10 20:52] LABS: Blood Urea Nitrogen 46 mg/dl (7-17); Creatinine Clearance Estimated 38 mL/min (50-200); Estimated Glomerular Filt Rate 46 ml/min (>60); GFR (African American) 55 ML/MIN (>60)
[2020-11-10 20:53] LABS: Anion Gap 8.7 mEq/L (5-15); Calcium 9.3 mg/dl (8.4-10.2); Carbon Dioxide 25 mmol/L (22.0-30.0); Glucose 107 mg/dl (74-100)
[2020-11-10 21:11] LABS: Sodium 152 mmol/L (136-145)
[2020-11-10 21:19] LABS: Vancomycin,Trough 9.7 ug/mL (5.0-10.0)
[2020-11-11] VITALS (9 sets, daily range): BP systolic 139–179; BP diastolic 80–97; PULSE 70–94; RESP 16–22; TEMP 36.3–37.7; O2SAT 95–98; BMI 18.8
--- NOTE | 2020-11-11 01:34 | PC.NURSE ---
2129 Phoebe from pharmacy called and gave ok to give vanc dose for the night
--- NOTE | 2020-11-11 03:50 | PC.NURSE ---
pt continues to be non verbal, cannot follow directions, or respond, pt rested well first part of shift, the second part patient has been moaning, PRN medications given for pain relief, pt has been repositioned Q2 hours, elizondo catheter in place draining cloudy yellow urine
[2020-11-11 06:38] LABS: Basophils % 0.3 % (0.1-2.0); Eosinophils # 0.1 K/mm3 (0.0-0.4); Eosinophils % 0.5 % (0.1-12.0); Hematocrit 38.5 % (37.0-47.0); Hemoglobin 12.6 g/dL (12.2-16.2); Lymphocytes # 1.9 K/mm3 (0.7-4.5); Mean Corpuscular HGB Conc 32.8 g/dL (31.8-35.4); Mean Corpuscular Hemoglobin 29.5 pg (27.0-31.2); Mean Platelet Volume 8.2 fl (7.4-10.4); Monocytes # 0.4 K/mm3 (0.1-1.0); Monocytes % 3.9 % (1.7-9.3); Neutrophils # 7.7 K/mm3 (1.8-7.8); Neutrophils % 76.3 % (37.0-80.0); Platelet Count 355 K/mm3 (142-424); Red Blood Count 4.28 M/mm3 (4.20-5.40); Red Cell Distribution Width 13.3 % (11.5-17.5)
[2020-11-11 07:02] LABS: Alanine Aminotransferase 19 U/L (12-78); Albumin Level 3.4 g/dl (3.5-5.0); Albumin/Globulin Ratio 1.1 (1.1-1.8); Alkaline Phosphatase 56 U/L (38-126); Anion Gap 7.5 mEq/L (5-15); Aspartate Amino Transferase 35 U/L (14-36); Bilirubin,Total 0.5 mg/dl (0.2-1.3); Blood Urea Nitrogen 35 mg/dl (7-17); Calcium 9.1 mg/dl (8.4-10.2); Carbon Dioxide 23 mmol/L (22.0-30.0); Chloride 121 mmol/L (98-107); Creatinine Clearance Estimated 47 mL/min (50-200); Estimated Glomerular Filt Rate 64 ml/min (>60); GFR (African American) 77 ML/MIN (>60); Glucose 113 mg/dl (74-100); Magnesium 2.4 mg/dl (1.6-2.3); Phosphorous 2.3 mg/dl (2.5-4.5); Potassium 3.5 mmoL/L (3.5-5.1); Sodium 148 mmol/L (136-145); Total Protein,Serum 6.4 g/dl (6.3-8.2)
--- NOTE | 2020-11-11 08:16 | HMH.ACPN2 ---
Internal Medicine - PN: Subj *Date: 11/11/20 *Time: 08:16 Interval history: Patient remains essentially unresponsive, is awake but does not respond to tactile stimuli or verbal stimuli. No meaningful p.o. intake. Exam Vital signs and Labs for Last 24 Hours: Temp Pulse Resp BP Pulse Ox 98.1 F 81 22 156/97 H 98 11/11/20 04:00 11/11/20 04:00 11/11/20 04:00 11/11/20 04:00 11/11/20 04:00 Laboratory Results - last 24 hr 11/09/20 16:23: Urine Color Yellow, Urine Appearance Clear, Urine pH 6.5, Ur Specific [place] 1.025, Urine Protein 2+, Urine Glucose (UA) Negative, Urine Ketones 1+, Urine Blood 2+, Urine Nitrate Negative, Urine Bilirubin Negative, Urine Urobilinogen 0.2, Ur Leukocyte Esterase Trace, Urine RBC 3-5, Urine WBC 5-10, Ur Squamous Epith Cells 3-5, Urine Bacteria 4+ 11/10/20 20:36: Vancomycin Trough 9.7 11/10/20 20:36: Sodium 152 H*, Potassium 3.7, Chloride 122 H, Carbon Dioxide 25, Anion Gap 8.7, BUN 46 H, Creatinine 1.20 H, Estimated Creat Clear 38, Estimated GFR 46 L, Est GFR ( Amer) 55 L, Glucose 107 H, Calcium 9.3 11/11/20 06:09: WBC 10.0, RBC 4.28, Hgb 12.6, Hct 38.5, MCV 90.0, MCH 29.5, MCHC 32.8, RDW 13.3, Plt Count 355, MPV 8.2, Neut % (Auto) 76.3, Lymph % (Auto) 19.0, [place] % (Auto) 3.9, Eos % (Auto) 0.5, Baso % (Auto) 0.3, Neut # (Auto) 7.7, Lymph # (Auto) 1.9, [place] # (Auto) 0.4, Eos # (Auto) 0.1, Baso # (Auto) 0.0 11/11/20 06:09: Sodium 148 H, Potassium 3.5, Chloride 121 H, Carbon Dioxide 23, Anion Gap 7.5, BUN 35 H, Creatinine 0.90 D, Estimated Creat Clear 47, Estimated GFR 64, Est GFR ( Amer) 77 D, Glucose 113 H, Calcium 9.1, Phosphorus 2.3 L, Magnesium 2.4 H, Total Bilirubin 0.5, AST 35, ALT 19, Alkaline Phosphatase 56, Total Protein 6.4, Albumin 3.4 L, Globulin 3.0, Albumin/Globulin Ratio 1.1 I & O for Last 24 hours: Intake & Output 11/08/20 11/09/20 11/10/20 11/11/20 11:59 11:59 11:59 11:59 Intake Total 2930 / 2930 1334 / 1334 Output Total 750 / 750 800 / 800 Balance 2180 / 2180 534 / 534 Weight 107 lb 8 oz 110 lb 7 oz Microbiology Reports for the Last 24 Hours: Microbiology 11/09/20 16:23 Urine,Clean Catch Urine Culture - Preliminary Gram Negative Rods Narrative: Lungs are clear, heart rate regular, abdomen soft, very minimally responsive. Near catatonic. However eyes are open, she does seem to track people around the room. Oropharynx clear. Labs reviewed. Assessment and Plan (1) Severe sepsis Status: Acute Category: Medical Code(s): A41.9 - Sepsis, unspecified organism; R65.20 - Severe sepsis without septic shock (2) UTI (urinary tract infection) Status: Acute Qualifiers: Urinary tract infection type: acute cystitis Hematuria presence: with hematuria Qualified Code(s): N30.01 - Acute cystitis with hematuria Category: Medical Code(s): N39.0 - Urinary tract infection, site not specified (3) Hypernatremia Status: Acute Category: Medical Code(s): E87.0 - Hyperosmolality and hypernatremia (4) Hx of cancer of lung Status: Chronic Category: Medical Code(s): Z85.118 - Personal history of other malignant neoplasm of bronchus and lung (5) KELI (acute kidney injury) Status: Acute Category: Medical Code(s): N17.9 - Acute kidney failure, unspecified (6) History of pneumonectomy Status: Chronic Category: Surgical Code(s): Z98.890 - Other specified postprocedural states; Z90.2 - Acquired absence of lung [part of] (7) Dementia Status: Chronic Category: Medical Code(s): F03.90 - Unspecified dementia without behavioral disturbance (8) Severe protein-calorie malnutrition Status: Chronic Category: Medical Code(s): E43 - Unspecified severe protein-calorie malnutrition - Assessment and plan all Dx Assessment and Plan for all problems:: Extremely sad case with rapid and progressive and inexorable dementia progression. Treat UTI. Labs have normalized, recheck
--- NOTE | 2020-11-11 09:11 | PC.NURSE ---
pt is aphasic and has minimal mvmt. pt eyes are open and she moans outloud.
--- NOTE | 2020-11-11 09:29 | HMH.PHACONS ---
- Pharmacy Consult Date: 11/11/20 Time: 09:30 Referring provider: DR. PUCKETT Reason for Consult:: VANCOMYCIN TROUGH LEVEL Allergies and ADEs:: Allergies Allergy/AdvReac Type Severity Reaction Status Date / Time No Known Allergies Allergy Verified 11/09/20 17:01 Home Medications:: Home Medications Medication Instructions Recorded Confirmed Type Acetaminophen [Tylenol Extra 1,000 mg PO BID 11/09/20 11/09/20 History Strength] Dextromethorphan HBr/Quinidine 1 each PO BID 11/09/20 11/09/20 History [Nuedexta 20-10 mg Capsule] Mirtazapine [Remeron 15mg tablet] 15 mg PO DAILY 11/09/20 11/10/20 History OLANZapine [Zyprexa] 5 mg PO BID 11/09/20 11/10/20 History PARoxetine HCL [Paxil] 30 mg PO DAILY 11/09/20 11/10/20 History diazePAM [diazePAM 5mg Tablet] 5 mg PO TID 11/09/20 11/10/20 History Height: 1.63 m Weight: 50.094 kg Laboratory Results:: Laboratory Results - last 24 hr 11/09/20 16:23: Urine Color Yellow, Urine Appearance Clear, Urine pH 6.5, Ur Specific [place] 1.025, Urine Protein 2+, Urine Glucose (UA) Negative, Urine Ketones 1+, Urine Blood 2+, Urine Nitrate Negative, Urine Bilirubin Negative, Urine Urobilinogen 0.2, Ur Leukocyte Esterase Trace, Urine RBC 3-5, Urine WBC 5-10, Ur Squamous Epith Cells 3-5, Urine Bacteria 4+ 11/10/20 20:36: Vancomycin Trough 9.7 11/10/20 20:36: Sodium 152 H*, Potassium 3.7, Chloride 122 H, Carbon Dioxide 25, Anion Gap 8.7, BUN 46 H, Creatinine 1.20 H, Estimated Creat Clear 38, Estimated GFR 46 L, Est GFR ( Amer) 55 L, Glucose 107 H, Calcium 9.3 11/11/20 06:09: WBC 10.0, RBC 4.28, Hgb 12.6, Hct 38.5, MCV 90.0, MCH 29.5, MCHC 32.8, RDW 13.3, Plt Count 355, MPV 8.2, Neut % (Auto) 76.3, Lymph % (Auto) 19.0, [place] % (Auto) 3.9, Eos % (Auto) 0.5, Baso % (Auto) 0.3, Neut # (Auto) 7.7, Lymph # (Auto) 1.9, [place] # (Auto) 0.4, Eos # (Auto) 0.1, Baso # (Auto) 0.0 11/11/20 06:09: Sodium 148 H, Potassium 3.5, Chloride 121 H, Carbon Dioxide 23, Anion Gap 7.5, BUN 35 H, Creatinine 0.90 D, Estimated Creat Clear 47, Estimated GFR 64, Est GFR ( Amer) 77 D, Glucose 113 H, Calcium 9.1, Phosphorus 2.3 L, Magnesium 2.4 H, Total Bilirubin 0.5, AST 35, ALT 19, Alkaline Phosphatase 56, Total Protein 6.4, Albumin 3.4 L, Globulin 3.0, Albumin/Globulin Ratio 1.1 Medical History: Reports:: Cancer, Chronic Obstructive Pulmonary Disease (COPD), Dementia, Hypertension Denies:: Atrial Fibrillation, Congestive Heart Failure, Diabetes Mellitus Type 2 Assessment and Plan (1) Severe sepsis Status: Acute Category: Medical Code(s): A41.9 - Sepsis, unspecified organism; R65.20 - Severe sepsis without septic shock (2) UTI (urinary tract infection) Status: Acute Qualifiers: Urinary tract infection type: acute cystitis Hematuria presence: with hematuria Qualified Code(s): N30.01 - Acute cystitis with hematuria Category: Medical Code(s): N39.0 - Urinary tract infection, site not specified (3) Hypernatremia Status: Acute Category: Medical Code(s): E87.0 - Hyperosmolality and hypernatremia (4) Hx of cancer of lung Status: Chronic Category: Medical Code(s): Z85.118 - Personal history of other malignant neoplasm of bronchus and lung (5) KELI (acute kidney injury) Status: Acute Category: Medical Code(s): N17.9 - Acute kidney failure, unspecified (6) History of pneumonectomy Status: Chronic Category: Surgical Code(s): Z98.890 - Other specified postprocedural states; Z90.2 - Acquired absence of lung [part of] (7) Dementia Status: Chronic Category: Medical Code(s): F03.90 - Unspecified dementia without behavioral disturbance (8) Severe protein-calorie malnutrition Status: Chronic Category: Medical Code(s): E43 - Unspecified severe protein-calorie malnutrition - Assessment and plan all Dx Assessment and Plan for all problems:: BASED ON PATIENT FACTORS AND VANCOMYCIN TROUGH LEVEL, RECOMMEND INCREASING VANCOMYCIN TO 1 GM IV Q24H. PHARMACY WILL CON
--- NOTE | 2020-11-11 11:01 | SW/DCPLANNER ---
Addendum entered by Verona Joseph 11/12/20 09:16: PATIENT IS DISCHARGING TO THE PENITENTIARY AT [facility] TODAY AND WILL BE ADMITTED TO HOSPICE SERVICES... SPOKE WITH YESTERDAY AND HE IS IN AGREEMENT OF THE PLAN... Original Note: SPOKE WITH SPOUSE OF THIS PATIENT REGARDING HOSPICE SERVICES... MR OCHOA STATED HE HAS SPOKEN WITH HOSPICE PRIOR TO HER COMING TO THE HOSPITAL AND HE IS IN AGREEMENT FOR HER TO RETURN BACK AND BE ADMITTED WITH HOSPICE SERVICES...THEY HAVE EVERYTHING THEY NEED TO ADMIT HER TMRW BACK TO [facility]...I DID SEND A PACKET OF HER COURSE OF STAY TO HOSPICE AND [facility]...I DID NOTIFY THE FACILITY OF THE PLAN...
--- NOTE | 2020-11-11 13:54 | DIET.NUTRFU ---
Per Tiburcio Mabry pt has been on puree diet with thin liquids there, diet altered. Pt with severe protein calorie malnutrition rt dementia and currently remains unable to tolerate PO intake. Following further care plans/findings to provide MNT as needed/appropriate
--- NOTE | 2020-11-11 16:06 | PC.NURSE ---
pt has appeared to rest well this shift. lungs are diminished but clear. bowel sounds are hypo active. pt is non verbal and has minimal mvmts of her body. pt has heel protectors in place r/t unable to float heels r/t the way pt holds her legs in position.nad noted, pain meds given r/t pt family concern she may be hurting. nad noted.
[2020-11-12] VITALS: BP 109/67; PULSE 86; PULSE 90; RESP 17; TEMP 37.4; O2SAT 98
--- NOTE | 2020-11-12 03:33 | PC.NURSE ---
Pt has been nonverbal this shift but will moan when being turned. PT has opened her eyes spontaneously once. PT has had frequent secretions pooling in the back of her throat. Oral care q1-2h and prn. turned q2h. OFley is in place, draining clear yellow urine. Toradol has been given x1 for pain, pt moaning decreased afterwards. Drsg on coccyx DTI CDI. IV patent, 0.45 NS with 20K @ 100. No PO intake this shift, bowel sounds are hypoactive. Lungs are diminished, on room air. VSS, no concerns at this time.
[2020-11-12 04:00] VITALS: BP 110/64; PULSE 60; PULSE 84; RESP 18; TEMP 36.7; O2SAT 98
[2020-11-12 05:06] VITALS: BMI 19.3
[2020-11-12 06:46] LABS: Basophils % 0.3 % (0.1-2.0); Eosinophils # 0.3 K/mm3 (0.0-0.4); Eosinophils % 4.1 % (0.1-12.0); Hematocrit 38.4 % (37.0-47.0); Hemoglobin 12.3 g/dL (12.2-16.2); Lymphocytes # 1.3 K/mm3 (0.7-4.5); Lymphocytes % 17.6 % (10-50); Mean Corpuscular HGB Conc 32.1 g/dL (31.8-35.4); Mean Corpuscular Hemoglobin 28.6 pg (27.0-31.2); Mean Corpuscular Volume 89.1 fl (81-99); Mean Platelet Volume 8.6 fl (7.4-10.4); Monocytes # 0.4 K/mm3 (0.1-1.0); Monocytes % 4.9 % (1.7-9.3); Neutrophils # 5.5 K/mm3 (1.8-7.8); Neutrophils % 73.2 % (37.0-80.0); Platelet Count 279 K/mm3 (142-424); Red Blood Count 4.31 M/mm3 (4.20-5.40); Red Cell Distribution Width 13.4 % (11.5-17.5); White Blood Count 7.5 K/mm3 (4.8-10.8)
[2020-11-12 06:59] LABS: Anion Gap 3.7 mEq/L (5-15); Blood Urea Nitrogen 27 mg/dl (7-17); Calcium 8.8 mg/dl (8.4-10.2); Carbon Dioxide 28 mmol/L (22.0-30.0); Chloride 113 mmol/L (98-107); Creatinine Clearance Estimated 48 mL/min (50-200); Estimated Glomerular Filt Rate 64 ml/min (>60); GFR (African American) 77 ML/MIN (>60); Glucose 123 mg/dl (74-100); Potassium 3.7 mmoL/L (3.5-5.1); Sodium 141 mmol/L (136-145)
[2020-11-12 07:45] VITALS: BP 121/74; PULSE 60; RESP 17; TEMP 36.4; O2SAT 100
--- NOTE | 2020-11-12 08:37 | HMH.DCSUM ---
General - General Admission date:: 11/09/20 Discharge date: 11/12/20 HPI HPI: 59-year-old female with a history of dementia, hypertension and lung cancer status post pneumonectomy in remission, recently admitted to our service at at [facility]. She was brought to the ER Due to worsening altered mental status, inability to tolerate p.o. medications, and lack of response to sternal rub. On work-up in the ER she was found to have criteria for sepsis with tachycardia, fever, endorgan damage (KELI) and urinary tract infection. Admitted for IV antibiotics, fluid resuscitation, and further management. Review of her outpatient records show that she has an extensive history of progressive dementia with psychiatric symptoms. Recent admissions in the past several months to [facility], and most recently sent [facility]. Significant adjustments to her medications were made at that time. She has been less responsive ever since returning. Of note, had a recent episode of E. coli UTI with hallucinations requiring admission to earlier this year. Hospital Course Hospital Course: Patient was admitted, placed on broad-spectrum antibiotics given her sepsis, she was treated for her multiple electrolyte abnormalities and dehydration resolved. Electrolyte abnormalities resolved. Leukocytosis resolved and blood pressure and pulse stabilized. However, patient's significant mental status depression/confusion/lethargy continued and patient remained obtunded throughout her hospital stay. She was extremely poorly responsive to painful and tactile stimuli in spite of the cessation of her psychiatric medications that had been started at a recent psychiatric stay from her local care home. Extensive conversations with her ensued, and given her precipitous and tragic decline over the past year and a half with unclear etiology of her terminal dementia it was elected that hospice would be pursued and she would be transferred back to the care home today. Plan will be to assume palliative/comfort/terminal care. We will stop antibiotics and fluids. She will be placed on Roxanol and Levsin as she is having increasing secretions. Comfort feedings only although currently she is not taking anything p.o. She will need oral care, skin care and hospice has been consulted to follow her at the local care home. I would hope that the [facility] at could be contacted by hospice so that if family is agreeable her brain could be sent for necropsy to evaluate this extremely unusual, rapidly progressive and tragic early dementia. Objective Vital signs: Temp Pulse Resp BP Pulse Ox 97.5 F L 60 17 121/74 100 11/12/20 07:45 11/12/20 07:45 11/12/20 07:45 11/12/20 07:45 11/12/20 07:45 thin, cachectic, chronically ill appearing, obtunded - *Routine HEENT Exam Head: Present: normocephalic Eye: Present: PERRL ENT: Present: mucous membranes moist - *Routine Neck Exam Present: supple - *Routine Respiratory Exam Present: rhonchi, diminished air movement - *Routine Cardiovascular Exam Present: RRR - *Routine Abdominal Exam Present: soft, normoactive bowel sounds. Absent: tenderness - *Routine Rectal Exam Comments: Defer - *Routine Exam Comments: Deferred - *Routine Extremities Exam Absent: cyanosis, clubbing, edema, normal capillary refill Comments: Minimal spontaneous movement. - *Routine Skin Exam Present: dry. Absent: erythema, rash - Detailed Eye Exam Eyelids: Bilateral normal inspection Results Labs on day of discharge: Labs from last 24 hours 11/12/20 11/12/20 05:47 05:47 WBC 7.5 RBC 4.31 Hgb 12.3 Hct 38.4 MCV 89.1 MCH 28.6 MCHC 32.1 RDW 13.4 Plt Count 279 MPV 8.6 Neut % (Auto) 73.2 Lymph % (Auto) 17.6 [place] % (Auto) 4.9 Eos % (Auto) 4.1 Baso % (Auto) 0.3 Neut # (Auto) 5.5 L
[2020-11-12 09:19] LABS: Prealbumin 15 mg/dL (10-36)
--- NOTE | 2020-11-12 13:21 | PC.NURSE ---
PATIENT BEGAN SCREAMING VERY LOUDLY. THIS RN RECEIVED AN ORDER TO ADMINISTER 10MG SUB ROXANOL. PATIENT CONTINUED TO SCREAM LOUDLY, THIS RN RECEIVED AN ORDER FOR 2MG HALDOL IM. THIS RN ADMINISTERED BOTH ORDERS. EMT ON FLOOR TO TRANSPORT. NO OTHER NEEDS.
== END 2020-11-12 13:16 | disposition hospice, inpatient (51) ==
LOC: ER 16:27 → 2ND 18:49
PROVIDERS: Internal Medicine Adolescent Medicine; Admitting Provider Family Medicine; Emergency Provider Emergency Medicine; PCP Nurse Practitioner Family; Visit Provider Internal Medicine Adolescent Medicine
DX: J18.9 Pneumonia, unspecified organism; N39.0 Urinary tract infection, site not specified; E43 Unspecified severe protein-calorie malnutrition; Z68.1 Body mass index [BMI] 19.9 or less, adult; L89.159 Pressure ulcer of sacral region, unspecified stage; F03.91 Unspecified dementia, unspecified severity, with behavioral disturbance; E86.0 Dehydration; Z90.2 Acquired absence of lung [part of]; Z85.118 Personal history of other malignant neoplasm of bronchus and lung
CPT/HCPCS: 36415; 71045; 80048; 80053; 80202; 81001; 83605; 83690; 83735; 84100; 84134; 85007; 85025; 87040; 87086; 87088; 87186; 87581; 87633; 87798; 93005; 96365; 99284; G0378; J2543; J3370